=== PATIENT | male | born 1965 | race Caucasian/White ===

== ENCOUNTER 2020-05-13 07:00 | Observation (INO) | payer OTHER ==
[~2020-05-13] VITALS: Ht 177.8 cm; Wt 90.0 kg
[~2020-05-13 07:00] MED LIST: AIRDUO RESPICL1 EAC1 INH; CYCL10 PO; HYDACE5 PO; Loratadine10 MG PO; NAPR550 PO; RXCYCL10 PO; RXHYDACE PO; RXNAPNA550 PO
--- NOTE | 2020-05-13 13:32 | NUR ---
PATIENT TOOK WATER AND JELLO W/O C/O. MEDICATED WITH IV AND PO PAIN MED FOR C/O PAIN 12/01. NOW RESTING QUIETLY WITH EYES CLOSED. VSS. BIOX 90'S ON RA. LLE ELEVATED, PINK AND WARM. CALL LIGHT IN REACH. CONT TO MONITOR.
--- NOTE | 2020-05-13 16:55 | NUR ---
SHIFT SUMMARY PATIENT UP WITH PT AND THEN TO CHAIR. STATES ADEQUATE PAIN CONTROL WITH PO PAIN MED. TOLERATING PO. VSS. L TOES PINK, WARM. CONT TO MONITOR.
[2020-05-14 04:47] LABS: Hematocrit 38.1 % (37.0-53.0); Hemoglobin 12.4 g/dL (13.5-17.5); Mean Corpuscular HGB 28.3 pg (26.0-34.0); Mean Corpuscular HGB Conc 32.5 g/dL (31.5-36.5); Mean Corpuscular Volume 87 fL (80-100); Mean Platelet Volume 10.4 fL (9.1-12.4); Platelet Count 209 K/mm3 (150-400); RDW Coefficient Variation 12.2 % (11.7-14.2); RDW Standard Deviation 39.4 fL (35.1-46.3); Red Blood Cell Count 4.38 M/mm3 (4.30-5.90)
--- NOTE | 2020-05-14 05:08 | NUR ---
SHIFT SUMMARY PT A/O X4. L LEG HAS BEEN ELEVATED ON PILLOWS DURING THE SHIFT. SPLINT/JANETH TO LLE IN PLACE. ICE HAS BEEN ON AND OFF DURING THE SHIFT. PT USING URINAL TO VOID. TOLERATING PO INTAKE W/O NAUSEA. PT RESTING IN BED WITH CALL LIGHT IN REACH AT THIS TIME.
[2020-05-14 05:32] LABS: Anion Gap 7 mmol/L (6-16); Blood Urea Nitrogen 17 mg/dL (8-24); Bun/Creatinine Ratio 23.5 (12.0-20.0); CO2, Blood 24 mmol/L (21-32); Calcium, Blood 8.3 mg/dL (8.5-10.1); Chloride, Blood 110 mmol/L (98-108); Creatinine, Blood 0.72 mg/dL (0.60-1.20); Glomerular Filtration Rate >60 (60-); Glucose, Blood 120 mg/dL (70-99); Potassium, Blood 3.9 mmol/L (3.5-5.5); Sodium, Blood 141 mmol/L (136-145)
[2020-05-14] MEDS ORDERED: HYDACE10B PO (11:28)
== END 2020-05-14 15:00 | disposition home or self-care (01) ==
LOC: SURS 07:00 → PRE IP 07:00 → SURS 07:01 → PRE IP 08:30 → SURS 12:36
PROVIDERS: Internal Medicine; ADMIT Podiatrist Foot & Ankle Surgery
DX: M19.072 Primary osteoarthritis, left ankle and foot (principal); M21.172 Varus deformity, not elsewhere classified, left ankle; J30.2 Other seasonal allergic rhinitis; M25.772 Osteophyte, left ankle; Z20.828 Contact with and (suspected) exposure to other viral communicable diseases; Z23 Encounter for immunization; Z79.51 Long term (current) use of inhaled steroids; Z79.1 Long term (current) use of non-steroidal anti-inflammatories (NSAID); Z79.899 Other long term (current) drug therapy; Z87.891 Personal history of nicotine dependence; Z98.52 Vasectomy status; Z91.09 Other allergy status, other than to drugs and biological substances
CPT/HCPCS: 36415; 73610; 80048; 85027; 96372; 97116; 97161; 97530; A9270; G0378; J0171; J0690; J0735; J1100; J1650; J1885; J2250; J2405; J2704; J2795; J3010; J7120

== ENCOUNTER 2021-06-05 11:23 | Day surgery (SDC) | payer OTHER ==
[~2021-06-05] VITALS: Ht 177.8 cm; Wt 93.2 kg
[~2021-06-05 11:23] MED LIST changes: +HYDACE10B PO
[2021-06-05] MEDS ORDERED: ACETAMINOPHEN500 MG PO (11:48)
[2021-06-05] MEDS ORDERED: NAPR220 PO (11:48)
--- NOTE | 2021-06-05 13:11 | NUR ---
06/05/21 1311 Jourdan Sandoval BUPIVACAINE 0.5% 50 ML MIXED WITH EPI 0.25 ML PER ORDER TO CONSTITUTE BUPIVACAINE 0.5% 1:200,000 FOR INJECTION AT OPSITE. MULTI DOSE VIAL, POPITEAL BLOCK COMPLETE BY DR SUTTON IN OR, TIME OUT COMPLETE, VSS. PT TOLERATED WELL.
== END 2021-06-05 15:15 | disposition home or self-care (01) ==
LOC: ORSCSDS 11:23
PROVIDERS: Podiatrist Foot & Ankle Surgery
PROC: 0SGF04Z Fusion of Right Ankle Joint with Internal Fixation Device, Open Approach (ICD-10-PCS; principal; 2021-06-05 12:30)
DX: M19.171 Post-traumatic osteoarthritis, right ankle and foot (principal)
CPT/HCPCS: C1713; J0171; J0690; J1100; J2250; J2405; J2704; J3010; J7120